=== PATIENT | female | born 1975 | race Asian ===

== ENCOUNTER 2019-02-01 09:54 | Emergency (ER) | payer OTHER ==
--- NOTE | 2019-02-01 10:52 | RAD ---
LEFT SHOULDER 3 VIEWS: Date: 02/01/19 HISTORY: Shoulder pain. FINDINGS: No fracture or dislocation. AC joint normally aligned. IMPRESSION: No acute findings. POS: OFF
--- NOTE | 2019-02-01 10:53 | RAD ---
2 VIEW CHEST: Date: 02/01/19 HISTORY: Shortness of breath. Chest pain. FINDINGS: Lungs are clear. Heart and mediastinum unremarkable. IMPRESSION: No acute findings. POS: OFF
[2019-02-01] MEDS ORDERED: Ketorolac Tromethamine 30 MG/ML VIAL ONE (11:31)
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
== END 2019-02-01 12:48 | disposition home or self-care (01) ==
LOC: SCSER 09:54
DX: M54.2 Cervicalgia (principal); M25.512 Pain in left shoulder; R07.9 Chest pain, unspecified; V43.52XA Car driver injured in collision with other type car in traffic accident, initial encounter
CPT/HCPCS: 70450; 71046; 72125; 96372; J1885